=== PATIENT | female | born 1975 | race American Indian/Alaskan Native ===

== ENCOUNTER 2021-01-01 05:35 | Observation (INO) | payer BC ==
[2020-12-30 10:52] LABS: Basophils % (Auto) 0.7 % (0.0-1.8); Eosinophils # (Auto) 0.1 K/mm3 (0.0-0.4); Eosinophils % (Auto) 1.6 % (0.0-4.3); Hematocrit 36.5 % (30.3-42.9); Lymphocytes # (Auto) 2.7 K/mm3 (1.2-5.4); Lymphocytes % (Auto) 41.8 % (13.4-35.0); Mean Corpuscular HGB Conc 33 % (30-34); Mean Corpuscular Volume 91 fl (79-97); Monocytes # (Auto) 0.4 K/mm3 (0.0-0.8); Monocytes % (Auto) 6.8 % (0.0-7.3); Platelet Count 400 K/mm3 (140-440); Red Blood Count 4.01 M/mm3 (3.65-5.03); Red Cell Distribution Width 13.3 % (13.2-15.2)
--- NOTE | 2020-12-30 11:29 | Anesthesia Consultation ---
Anesthesia Consult and Med Hx Date of service: 01/01/21 - Airway Anesthetic Teeth Evaluation: Good ROM Head & Neck: Adequate Mental/Hyoid Distance: Adequate Mallampati Class: Class III Intubation Access Assessment: Possibly Difficult - Pulmonary Exam CTA: Yes - Cardiac Exam Cardiac Exam: RRR - Pre-Operative Health Status ASA Pre-Surgery Classification: ASA2 Proposed Anesthetic Plan: General - Pulmonary Hx Smoking: No Hx Asthma: Yes (rare inhaler use) Hx Respiratory Symptoms: No Hx Sleep Apnea: Yes (used CPAP while , no CPAP in recent years) - Cardiovascular System Hx Hypertension: No Hx Heart Attack/AMI: No - Central Nervous System CVA: No - Endocrine Hx Renal Disease: No (remote hx ARF 2/2 NSAID overuse but recovered to normal function) Hx Liver Disease: No Hx Insulin Dependent Diabetes: No Hx Non-Insulin Dependent Diabetes: No Hx Thyroid Disease: No - Other Systems Hx Cancer: No Hx Obesity: Yes (BMI 36) - Additional Comments Anesthesia Medical History Comments: No hx anesthetic complications.
[2021-01-01] MEDS ORDERED: LACTATED RINGERS 1,000 ML IV SCH (06:00)
[2021-01-01] MEDS ORDERED: ACETAMINOPHEN 500 MG TAB PO SCH (06:00)
[2021-01-01] MEDS ORDERED: fentaNYL 100 MCG/2 ML INJ IV PRN (06:00)
[2021-01-01] MEDS ORDERED: MIDAZOLAM 2 MG/2 ML INJ IV NR (06:00)
[2021-01-01] MEDS ORDERED: CELECOXIB 200 MG CAP PO NR (06:00)
[2021-01-01] MEDS ORDERED: SCOPOLAMINE TRANSDERMAL PATCH 72 HR TD NR (06:00)
[2021-01-01] MEDS ORDERED: GABAPENTIN 300 MG CAP PO NR (06:00)
[2021-01-01] MEDS ORDERED: HYDROmorphone 1 MG/1 ML INJ ONE (07:17)
[2021-01-01] MEDS ORDERED: propofoL 200 MG/20 ML VIAL IV ONE (07:17)
[2021-01-01] MEDS ORDERED: ROCURONIUM 50 MG/5 ML INJ IV ONE (07:19)
[2021-01-01] MEDS ORDERED: LIDOCAINE MPF (2%) 20 MG/1 ML VIAL 5 ML ONE (07:19)
[2021-01-01] MEDS ORDERED: ONDANSETRON 4 MG/2 ML INJ IV PRN (07:35)
[2021-01-01] MEDS ORDERED: oxyCODONE /ACETAMINOPHEN 5-325MG TAB PO PRN (07:35)
--- NOTE | 2021-01-01 07:35 | Anesthesia Day of Surgery ---
Anesthesia Day of Surgery - Day of Surgery Patient Examined: Yes Patient H&P Reviewed: Yes Patient is NPO: Yes
[2021-01-01] MEDS ORDERED: NEOMY 40 MG/POLYMYXIN B 200,000 UNITS/ML (GU) AMPULE IR ONE ×2 (07:41→09:42)
[2021-01-01] MEDS ORDERED: BUPIVACAINE/PF (0.5%) 5 MG/1 ML 30 ML VIAL INFILTRATI ONE (07:41)
[2021-01-01] MEDS ORDERED: BUPIVACAINE/PF (0.25%) 2.5 MG/ML 30 ML VIAL INFILTRATI ONE (07:59)
[2021-01-01] MEDS ORDERED: cloNIDine/PF 1,000 MCG/10 ML VIAL EP ONE (07:59)
[2021-01-01] MEDS ORDERED: dexAMETHasone 4 MG/ML VIAL ONE (07:59)
[2021-01-01] MEDS ORDERED: ceFAZolin/Water 2 GM/20 ML 2 GM/20 ML SYRINGE IV ONE (08:04)
[2021-01-01] MEDS ORDERED: dexAMETHasone 20 MG/5 ML VIAL ONE (08:53)
[2021-01-01] MEDS ORDERED: ceFAZolin/STERILE WATER 2 GM/20 ML SYRINGE IV NR (09:00)
[2021-01-01] MEDS ORDERED: SODIUM CHLORIDE 0.9% IRRIG SOLN 2000 ML IR ONE (09:41)
[2021-01-01] MEDS ORDERED: WATER FOR IRRIG STERILE 1,500 ML BOTTLE IR ONE (09:42)
[2021-01-01] MEDS ORDERED: SODIUM CHLORIDE 0.9% IRR 1,500 ML BOTTLE IR ONE (09:43)
[2021-01-01] MEDS ORDERED: ONDANSETRON 4 MG/2 ML INJ ONE (11:21)
[2021-01-01] MEDS ORDERED: LACTATED RINGERS 1,000 ML ONE (11:58)
--- NOTE | 2021-01-01 12:07 | History and Physical Report ---
History of Present Illness History of present illness: PREOP H&P is in the paper chart dictated in the office Medications and Allergies Allergies Allergy/AdvReac Type Severity Reaction Status Date / Time naproxen [From Aleve] Allergy Kidney Verified 12/29/20 06:47 damage Home Medications Medication Instructions Recorded Confirmed Last Taken Type No Known Home Medications [No 12/29/20 12/29/20 Unknown History Reported Home Medications] Active Meds: Active Medications Acetaminophen (Acetaminophen 500 Mg Tab) 1,000 mg PO PREOP CARMINE Stop: 01/01/21 23:01 Last Admin: 01/01/21 06:55 Dose: 1,000 mg Documented by: Celecoxib (Celecoxib 200 Mg Cap) 200 mg PO PREOP NR Stop: 01/01/21 23:00 Last Admin: 01/01/21 06:55 Dose: 200 mg Documented by: Fentanyl (Fentanyl 100 Mcg/2 Ml Inj) 100 mcg IV ONCE PRN PRN Reason: sedation for nerve block Gabapentin (Gabapentin 300 Mg Cap) 300 mg PO PREOP NR Stop: 01/01/21 23:01 Last Admin: 01/01/21 06:55 Dose: 300 mg Documented by: Hydromorphone HCl (Hydromorphone 1 Mg/1 Ml Inj) 0.5 mg IV Q10MIN PRN PRN Reason: Pain , Severe (7-10) Stop: 01/01/21 23:00 Lactated Ringer's (Lactated Ringers) 1,000 mls @ 100 mls/hr IV DIRECT CARMINE Stop: 01/01/21 23:59 Last Admin: 01/01/21 07:00 Dose: 100 mls/hr Documented by: Midazolam HCl (Midazolam 2 Mg/2 Ml Inj) 2 mg IV PREOP NR Stop: 01/01/21 23:01 Last Admin: 01/01/21 08:00 Dose: 2 mg Documented by: Ondansetron HCl (Ondansetron 4 Mg/2 Ml Inj) 4 mg IV ONCE PRN PRN Reason: Nausea And Vomiting Stop: 01/01/21 16:00 Scopolamine (Scopolamine Transdermal Patch 72 Hr) 1 each TD PREOP NR Stop: 01/01/21 23:00 Last Admin: 01/01/21 06:50 Dose: 1 each Documented by: - Vital Signs Vital signs: Vital Signs Temp Pulse Resp BP Pulse Ox 98.1 F 94 H 20 153/63 98 12/30/20 10:00 12/30/20 10:00 12/30/20 10:00 12/30/20 10:00 12/30/20 10:00 Temp Pulse Resp BP Pulse Ox 99.0 F 78 16 154/72 99 01/01/21 06:50 01/01/21 06:50 01/01/21 07:55 01/01/21 06:50 01/01/21 06:50 Results Result Diagrams: 12/30/20 10:30 All other labs normal.
--- NOTE | 2021-01-01 12:12 | Post Operative Note ---
Date of procedure: 01/01/21 Pre-op diagnosis: menorrhagia, dysmenorrhea, fibroid uterus Post-op diagnosis: same Findings: Patient had significant omental scarring to the anterior abdominal wall around the level of the umbilicus. The scarring extended almost the full width of her abdomen. Patient had an enlarged fibroid uterus with the largest 7 cm fibroid in the left fundal region. Bilateral tubes and ovaries were within normal limits. Patient with a history of 3 C-sections and significant scarring of the bladder to the anterior wall of the uterus. The rest of the general abdominal pelvic survey was within normal limits. Procedure: Indication: This is a 45-year-old with symptomatic fibroid uterus. Patient with a 7 cm large bulky fundal fibroid. Patient with significant dysmenorrhea and menorrhagia. As result patient here for her robotic assisted hysterectomy and bilateral salpingo-oophorectomy Procedure: Patient was taken to the operating room and prepped and draped in the usual fashion. Attention was first turned vaginally for placement of the V care cup uterine manipulator. This was done in the usual fashion including anchoring stitches at 12:00 and 6:00 of the cervical stroma with 0 Vicryl. The large Vcare cup was chosen and the manipulator was placed successfully and without difficulty. Attention was now turned abdominally. In the left upper quadrant about 2 fingerbreadths inferior to the costal margin in the midclavicular line, an 5 mm incision was made. The 5 mm trocar was successfully placed and the placement was confirmed with the camera. Attention was now turned to the placement of the 3 robotic trocars. The 2 lower quadrant ones were about 3 cm superior and medial to the ASIS on each side. These were 8 mm ports. They were placed under direct visualization with without difficulty. At this point, attention was turned to the above-noted omental adhesions. This was lysed using the 5 mm LigaSure. This was done successfully and without difficulty. Once this was done, the midline camera port was able to be placed. The 12 mm trocar site was also placed under direct visualization successfully and without difficulty. This was placed about 4 cm superior to the umbilicus. At this point, the p atient was placed in steep Trendelenburg. The robot was docked to the trochars. At this point, I broke scrub and proceeded to the da Bethany console. First the pelvis was assessed and findings noted above. Good ureteral peristalsis was noted bilaterally both at the beginning of the case and at the end of the case. Attention was first turned to the left adnexa where the infundibulopelvic ligament was resected from its attachments using the robotic vessel sealer. This dissection was carried to the round ligament. The round ligament was also clamped cauterized and cut with the vessel sealer. Good hemostasis was noted. This was then done in the exact same fashion on the right side with equal success and good hemostasis. At this point attention was turned the bladder flap. This took some time and was done very carefully in light of her significant scarring from her 3 C-sections. The bladder was repeatedly retrograde filled to demarcate the bladder anatomy. Eventually the bladder was able to be successfully dissected off of the uterus with no evidence of injury to the bladder. Urine was clear. Good hemostasis noted. The anterior colpotomy ring indentation was then identified from the V care cup. Colpotomy incision was made until the green Vcare cup was visualized. This incision was then extended bilaterally. Attention was then turned posteriorly where the posterior colpotomy ring indentation was identified and the colpotomy incision was made. The colpotomy incision posteriorly was then extended bilaterally. The posterior peritoneal flap was created at this point bilaterally. Good hemostasis noted. At this point attention was turned to the the uterine vasculature which was clamped cauterized and cut using the vessel sealer on both sides. After this was completed the colpotomy was completed at the 3:00 and 9:00 positions. At this point the colpotomy was completed 360 degrees. At this point the uterus and tubes were successfully removed vaginally. This portion also took some time due to the significant mass of the uterus. Removal required morcellating parts of the fibroid uterus using a long scalpel. Eventually the volume of the uterus was decreased enough where it was able to be delivered vaginally. Attention was turned to closure of the vaginal cuff which was done using 0 V-Loc in a running fashion. Vaginal cuff was closed successfully and without difficulty. The abdomen was desufflated and good hemostasis was noted. Abdomen was reinsufflated. Dunia was then applied to all the areas of dissection. At this point the robot was undocked from the trochars. I scrubbed back in and first inspected the vaginal cuff both visually and with palpation. Good hemostasis noted and good integrity of the cuff was noted. Laparoscopically good hemostasis still noted throughout. The 12 mm trocar was removed and that site was closed using the Bereket Reyna device and a 0 Vicryl. At this point the abdomen was fully desufflated. The other 3 trochars were removed and those trocar sites were closed using 4-0 Vicryl in a subcuticular fashion as well as the 12 mm site. The procedure was concluded at this point. Patient tolerated the procedure well. All instrument lap counts were correct. Patient taken to the recovery room in stable condition. Anesthesia: GETA Surgeon: SANA RAO (assist Dr. Kim) Estimated blood loss: other (200 cc) Pathology: list (Uterus, tubes, ovaries) Specimen disposition: to lab Condition: stable Disposition: PACU
[2021-01-01] MEDS ORDERED: ACETAMINOPHEN 325 MG TAB PO PRN (12:23)
[2021-01-01] MEDS: HYDROmorphone 1 MG/1 ML INJ IV PRN ×2 (13:03→13:21)
--- NOTE | 2021-01-01 15:10 | Post Anesthesia Evaluation ---
- Post Anesthesia Evaluation Patient Participated: Yes Airway Patent: Yes Stable Respiratory Function: Yes Nausea/Vomiting: No Temp > 96.8F: Yes Pain Manageable: Yes Adequeate Hydration: Yes Anesthesia Complications: No
[2021-01-01] MEDS: oxyCODONE /ACETAMINOPHEN 5-325MG TAB PO PRN (17:40)
[2021-01-01] MEDS: IBUPROFEN 800 MG TAB PO PRN (21:06)
[2021-01-02] MEDS: oxyCODONE /ACETAMINOPHEN 5-325MG TAB PO PRN ×4 (00:20→20:20)
[2021-01-02] MEDS ORDERED: LACTATED RINGERS 1,000 ML IV SCH (00:30)
[2021-01-02 04:14] LABS: Hematocrit 32.7 % (30.3-42.9); Hemoglobin 10.6 gm/dl (10.1-14.3)
[2021-01-02] MEDS: IBUPROFEN 800 MG TAB PO PRN ×2 (05:09→16:41)
--- NOTE | 2021-01-02 12:32 | Progress Note ---
Assessment and Plan - Patient Problems (1) S/P hysterectomy with oophorectomy Current Visit: Yes Status: Acute Plan to address problem: Doing overall okay postop day 1 status post robotic assisted hysterectomy and bilateral salpingo-oophorectomy. Patient with persistent postoperative pain and inability to pass flatus. Will return to clear liquids until patient is passing flatus. --Dispo pending the improvement of postoperative pain --If symptoms persist, consider imaging to further assess for abnormalities. Subjective - Subjective Date of service: 01/02/21 Principal diagnosis: POD1 s/p RAH/BSO for uterine fibroids and menorrhagia Interval history: Patient reports significant postoperative pain and inability to pass flatus or pass BM She has been ambulating. Urinating spontaneously. Tolerating some p.o. No nausea vomiting. After further discussion of her naproxen allergy it seems as though patient actually took too much naproxen and had acute kidney injury incident but still has both functioning kidneys. Patient reports: appetite normal, voiding normally, pain poorly controlled, ambu lating normally, no flatus Objective - Vital Signs Latest vital signs: Vital Signs Temp Pulse Resp BP BP Pulse Ox 01/02/21 08:16 98.2 F 77 24 116/58 96 01/02/21 08:00 98 01/02/21 05:10 18 01/02/21 05:09 18 01/02/21 05:03 99.1 F 91 H 20 129/67 97 01/02/21 00:39 97.8 F 95 H 20 116/70 95 01/02/21 00:20 18 01/01/21 21:43 98.6 F 100 H 20 144/80 96 01/01/21 21:06 18 01/01/21 19:10 94 01/01/21 15:50 97.8 F 84 16 120/78 99 01/01/21 14:50 98 F 76 16 146/80 01/01/21 14:45 98.7 F 76 16 146/80 100 01/01/21 14:15 98.1 F 83 16 128/80 100 01/01/21 14:00 86 15 127/76 99 01/01/21 13:45 88 16 128/69 99 01/01/21 13:30 84 16 131/73 99 01/01/21 13:15 80 19 137/84 100 01/01/21 13:00 82 17 141/91 100 01/01/21 12:45 78 16 134/89 100 01/01/21 12:40 78 20 139/79 100 01/01/21 12:35 76 16 140/89 99 Intake and Output 01/01/21 01/02/21 01/02/21 23:59 07:59 15:59 Intake Total 360 240 240 Output Total 550 1200 500 Balance -190 -960 -260 Intake: Oral 240 240 Intake, Free Water 120 240 Output: Urine 550 1200 500 Indwelling Catheter 550 1200 Void 500 Other: Total, Intake Amount 240 240 Total, Output Amount 550 600 100 Voiding Method Indwelling Catheter Indwelling Catheter Toilet - Exam Cardiovascular: Present: Regular rate Lungs: Present: Clear to auscultation, Normal air movement Abdomen: Present: normal appearance, soft, distention Incision: Present: normal Assessment and Plan - Plan Plan: Agree with Mag & steroids Will attend delivery Please call NICU with questions
[2021-01-02 13:51] LABS: Alanine Aminotransferase 14 units/L (7-56); Albumin 3.7 g/dL (3.9-5); Blood Urea Nitrogen 7 mg/dL (7-17); Calcium 8.8 mg/dL (8.4-10.2); Hemolysis Index 1
[2021-01-02 13:53] LABS: BUN/Creatinine Ratio 10
[2021-01-02] MEDS: SIMETHICONE 80 MG CHEW TAB PO PRN ×2 (14:18→20:20)
[2021-01-02] MEDS ORDERED: POTASSIUM CHLORIDE ER 20 MEQ TAB PO ONE (16:55)
[2021-01-02] MEDS ORDERED: KETOROLAC 30 MG/1 ML INJ IV ONE (16:59)
[2021-01-03] MEDS ORDERED: KETOROLAC 30 MG/1 ML INJ IV ONE (01:00)
[2021-01-03] MEDS: oxyCODONE /ACETAMINOPHEN 5-325MG TAB PO PRN (04:05)
[2021-01-03] MEDS: SIMETHICONE 80 MG CHEW TAB PO PRN ×2 (04:05→09:18)
--- NOTE | 2021-01-03 08:47 | Progress Note ---
Assessment and Plan - Patient Problems (1) S/P hysterectomy with oophorectomy Current Visit: Yes Status: Acute Plan to address problem: Doing overall well postop day 2 status post robotic assisted hysterectomy and bilateral salpingo-oophorectomy. Little improvement of postoperative pain and now with passage of flatus. --Anticipate discharge home today Subjective - Subjective Date of service: 01/03/21 Principal diagnosis: POD2 s/p RAH/BSO for uterine fibroids and menorrhagia Interval history: Patient reports slowly improving postoperative pain. Patient reports that she has passed flatus but is concerned that she has not had a bowel movement yet. She has been ambulating. Urinating spontaneously. Tolerating some p.o. No nausea/vomiting. Patient reports: voiding normally, pain well controlled, flatus, ambulating normally Objective - Vital Signs Latest vital signs: Vital Signs Temp Pulse Resp BP Pulse Ox 01/03/21 05:19 98.1 F 89 20 140/73 97 01/03/21 01:06 99.4 F 74 20 139/69 97 01/02/21 20:23 98.2 F 80 20 128/65 97 01/02/21 20:00 98 01/02/21 12:34 98.8 F 82 20 137/64 99 Intake and Output 01/02/21 01/03/21 01/03/21 23:59 07:59 15:59 Intake Total 480 360 Output Total 300 900 Balance 180 -540 Intake: Oral 480 120 Intake, Free Water 240 Output: Urine 300 900 Void 300 900 Other: Total, Intake Amount 120 120 Total, Output Amount 300 900 Voiding Method Toilet - Exam Lungs: Present: Clear to auscultation Abdomen: Present: normal appearance, soft, normal bowel sounds Extremities: Present: normal Incision: Present: normal - Labs Labs: Abnormal lab results 01/02/21 Range/Units 13:02 Potassium 3.3 L (3.6-5.0) mmol/L Glucose 102 H (65-100) mg/dL Albumin 3.7 L (3.9-5) g/dL
--- NOTE | 2021-01-03 08:49 | Discharge Summary ---
Providers - Providers Date of Admission: 01/01/21 12:24 Date of discharge: 01/03/21 Attending physician: SANA RAO Primary care physician: CHANEL BEAL Hospitalization Reason for admission: other (hysterectomy for uterine fibroids) Hospital course: 45-year-old admitted for operative management of uterine fibroids and pelvic pain now postop day 2 status post robotic assisted hysterectomy and bilateral salpingo-oophorectomy now meeting postoperative goals. Pain well controlled and passing flatus. Condition at discharge: Good Disposition: 01 HOME / SELF CARE / HOMELESS - Discharge Diagnoses (1) S/P hysterectomy with oophorectomy Status: Acute Plan - Discharge Medications Prescriptions: Docusate Sodium [Colace] 100 mg PO BID PRN #60 capsule PRN Reason: Constipation Ibuprofen [Motrin 800 MG tab] 800 mg PO Q8H PRN #30 tablet PRN Reason: Pain, Moderate (4-6) oxyCODONE /ACETAMINOPHEN [Percocet 5/325 mg] 1 tab PO Q6H PRN #30 tablet PRN Reason: Pain, Moderate (4-6) Simethicone 125 mg PO Q6HR PRN #90 tab.chew PRN Reason: Gas Pain - Provider Discharge Summary Activity: no sex for 6 weeks, no heavy lifting 4 weeks, no strenuous exercise Diet: routine Instructions: routine Additional instructions: [] Smoking cessation referral if applicable(refer to patient education folder for contact #) [] Refer to [facility]'s [facility] Booklet Call your doctor immediately for: * Fever > 100.5 * Heavy vaginal bleeding ( >1 pad per hour) * Severe persistent headache * Shortness of breath * Reddened, hot, painful area to leg or breast * Drainage or odor from incision. * Keep incision clean and dry at all times and follow doctor's instructions regarding bathing/showering - Follow up plan Follow up: SANA RAO MD [Staff Physician] - 14 Days
[2021-01-03 08:57] VITALS: BP 146/82
[2021-01-03] MEDS: IBUPROFEN 800 MG TAB PO PRN (09:16)
== END 2021-01-03 12:36 | disposition home or self-care (01) ==
LOC: OR 05:35 → OB 12:24
PROVIDERS: ADMIT Obstetrics & Gynecology; ATTEND Obstetrics & Gynecology
DX: N92.0 Excessive and frequent menstruation with regular cycle (principal); Z20.822 Contact with and (suspected) exposure to COVID-19; N94.6 Dysmenorrhea, unspecified; D25.9 Leiomyoma of uterus, unspecified; Z90.710 Acquired absence of both cervix and uterus
CPT/HCPCS: 36415; 58573; 80053; 84703; 85014; 85018; 85025; 86850; 86900; 86901; 88307; 96374; G0378; J0690; J0735; J1100; J1170; J1885; J2250; J2405; J2704; J7120; S2900; U0003; J3490; J3010